=== PATIENT | male | born 1960 | race Caucasian/White ===

== ENCOUNTER 2020-04-24 08:13 | Emergency (ER) | payer OTHER, SELFPAY ==
[2020-04-24 08:24] VITALS: BP 156/107; PULSE 64; RESP 20; TEMP 36.4; O2SAT 100
--- NOTE | 2020-04-24 08:31 | ED.EAR ---
HPI - Ear Problem General Chief complaint: Ear Stated complaint: Ear Pain Time Seen by Provider: 04/24/20 08:20 Source: patient Mode of arrival: ambulatory Limitations: no limitations History of Present Illness HPI Narrative: 60 years old -[place] male, using Q-tip to clean left ear because of itching, subsequently started having bleeding From the ear canal. Patient uses toilet paper to stop the bleeding. On arrival to the ED patient have no active bleeding, no toilet paper in his ear. Patient denies any fever, chills, nausea, vomiting, hearing impairment, exposure to anybody known to have COVID-19. Related Data Home Medications Medication Instructions Recorded Confirmed Xarelto 04/24/20 amlodipine 04/24/20 lisinopril 04/24/20 metoprolol succinate 04/24/20 spironolactone 04/24/20 Allergies Allergy/AdvReac Type Severity Reaction Status Date / Time No Known Allergies Allergy Verified 04/24/20 08:26 Review of Systems Review of Systems: Narrative: CONSTITUTIONAL: Denies fever, chills, or sweats. EYES: Denies visual changes, redness, or discharge. ENT: Left ear bleeding CARDIOVASCULAR: Denies chest pain, palpitations, or edema. RESPIRATORY: Denies cough or dyspnea. GASTROINTESTINAL: Denies abdominal pain, nausea, vomiting, or diarrhea. GENITOURINARY: Denies dysuria or hematuria. SKIN: Denies rash or itching. MUSCULOSKELETAL: Denies back pain, joint pain, or myalgia. NEUROLOGIC: Denies headache, numbness, or weakness. PSYCHIATRIC: Denies anxiety or depression. [facility] Social History Social History Gender identity (if verbalized by the patient): Male Exam Narrative: Exam Narrative: General appearance: Well-developed, well-nourished Skin: Normal color Head: Normocephalic, nontraumatic Eyes: Clear conjunctiva ENT: Oropharynx normal, left ear canal exam showed dried blood, no discharge, no swelling questionable abrasion of the skin, tympanic membrane is intact, no blood on it Neck: Supple, nontender Chest and respiratory: Airway patent, no respiratory distress, no accessory muscle use Heart: Regular rate/rhythm Neurologic: Alert and oriented ?3, [employer] is normal as tested, no gross motor deficit Course Course Emergency Course: Stable Vital Signs Vital signs: Vital Signs Temperature 36.4 C 04/24/20 08:24 Pulse Rate 64 04/24/20 08:24 Respiratory Rate 20 04/24/20 08:24 Blood Pressure 156/107 H 04/24/20 08:24 Pulse Oximetry 100 04/24/20 08:24 Temperature 36.4 C 04/24/20 08:24 Pulse Rate 64 04/24/20 08:24 Respiratory Rate 20 04/24/20 08:24 Blood Pressure 156/107 H 04/24/20 08:24 Pulse Oximetry 100 04/24/20 08:24 Medical Decision Making MDM Narrative Medical decision making narrative: Physical exam showed scratch, abrasion of the left ear canal. The tympanic membrane is intact. My plan to discharge patient on antibiotic and eardrops. Currently no active bleeding. Differential Diagnosis Differential Diagnosis: Otitis externa, traumatic injury to left ear canal causing bleeding Vital Signs Vital Signs: Vital Signs Temperature 36.4 C 04/24/20 08:24 Pulse Rate 64 04/24/20 08:24 Respiratory Rate 20 04/24/20 08:24 Blood Pressure 156/107 H 04/24/20 08:24 Pulse Oximetry 100 04/24/20 08:24 Temperature 36.4 C 04/24/20 08:24 Pulse Rate 64 04/24/20 08:24 Respiratory Rate 20 04/24/20 08:24 Blood Pressure 156/107 H 04/24/20 08:24 Pulse Oximetry 100 04/24/20 08:24 Critical Care Time Critical Care Time Critical Care Time: No Discharge Plan Discharge Clinical Impression: Acute hemorrhagic otitis externa of left ear Otitis externa Qual
== END 2020-04-24 10:10 | disposition home or self-care (01) ==
PROVIDERS: Emergency Provider Emergency Medicine
DX: H60.322 Hemorrhagic otitis externa, left ear (principal); I48.91 Unspecified atrial fibrillation; Z79.01 Long term (current) use of anticoagulants
CPT/HCPCS: 99283